=== PATIENT | female | born 1965 | race Caucasian/White ===

== ENCOUNTER 2021-03-29 15:33 | Emergency (ER) | payer MEDICAID, OTHER ==
[~2021-03-29] VITALS: Ht 170.2 cm; Wt 75.3 kg
--- NOTE | 2021-03-29 17:10 | NUR ---
acewrap applied to left ankle tolerated well.
[2021-03-29] MEDS ORDERED: IBUP-1955 PO (17:13)
--- NOTE | 2021-03-29 17:19 | NUR ---
Patient discharged to home in stable condition. Written and verbal after care instructions given. Patient verbalizes understanding of instructions. Stressed follow up or return to ER for worsening s/s.
== END 2021-03-29 17:20 | disposition home or self-care (01) ==
LOC: ER 15:33
DX: S93.402A Sprain of unspecified ligament of left ankle, initial encounter (principal); W18.40XA Slipping, tripping and stumbling without falling, unspecified, initial encounter; Y92.89 Other specified places as the place of occurrence of the external cause; Y99.8 Other external cause status; M72.2 Plantar fascial fibromatosis
CPT/HCPCS: 73630; A4663